=== PATIENT | female | born 1960 | race Caucasian/White ===

== ENCOUNTER 2023-02-09 17:22 | Observation (INO) | payer OTHER, SELFPAY ==
[2023-02-09] VITALS (16 sets, daily range): BP systolic 128–155; BP diastolic 63–94; PULSE 61–84; RESP 15–18; TEMP 36.6–36.7; O2SAT 90–100
--- NOTE | ~2023-02-09 | CT_ITS ---
EXAMINATION: CT abdomen pelvis w con INDICATION: Right lower quadrant pain TECHNIQUE: Computed tomographic images of the abdomen and pelvis were obtained after the administrati on of 100 cc of Omnipaque 350 intravenous contrast. The dose-length product (DLP) was 655.63 mGy-cm. Automated exposure control and iterative reconstruction technique were employed. COMPARISON: None available FINDINGS: Minimal dependent atelectasis is present in the lung bases. The heart size is normal. The l iver, spleen, pancreas, gallbladder, and adrenal glands are normal. The kidneys are unremarkable. The dilated appendix measures up to 9 mm. There is edematous stranding of the periappendiceal fat withou t evidence of perforation or abscess. No pathologically enlarged abdominal or pelvic lymph nodes are identified. No free intraperitoneal gas or evidence of bowel obstruction. There are umbilical and lef t inguinal hernias containing fat. There is a 3.5-1.4 cm enhancing area of the uterus. Moderate thora columbar spondylosis is noted. IMPRESSION: 1. Uncomplicated acute appendicitis. 2. Probable enhancing fibroid of the uterus. Follow-up with nonemergent pelvic ultrasound is recommen ded. Reviewed, dictated and finalized at location F. IMPRESSION: 1. Uncomplicated acute appendicitis. 2. Probable enhancing fibroid of the uterus. Follow-up with nonemergent pelvic ultrasound is recommended.
[2023-02-09 17:34] LABS: Basophils Percent Auto 0.5 % (0.2-1.2); Eosinophils Absolute Auto 0.1 K/mm3 (0-0.3); Eosinophils Percent Auto 1.4 % (0-4.4); Hematocrit 39.2 % (37.0-47.0); Immature Granulocyte Absolute 0.01 K/mm3 (0.00-0.031); Immature Granulocyte Percent A 0.2 % (0-0.5); Lymphocytes Absolute Auto 1.05 K/mm3 (0.9-3.2); Lymphocytes Percent Auto 24.7 % (18.3-44.2); Mean Corpuscular HGB Conc 33.2 g/dl (32-36); Mean Corpuscular Hemoglobin 34.6 pg (26-34); Mean Corpuscular Volume 104.3 fl (80-100); Monocytes Absolute Auto 0.3 K/mm3 (0.1-0.6); Monocytes Percent Auto 6.6 % (2.6-8.5); Neutrophils Absolute Auto 2.8 K/mm3 (1.3-6.7); Neutrophils Percent Auto 66.6 % (45.5-73.1); Platelet Count Result 194 k/mm3 (150-375); Red Blood Count 3.76 M/mm3 (4.2-5.4); White Blood Count 4.3 K/mm3 (4.5-10.0)
[2023-02-09 17:43] LABS: Alanine Aminotransferase 21 U/L (6-35); Albumin Level 4.7 g/dL (3.5-5.1); Alkaline Phosphatase 59 U/L (38-126); Anion Gap 6 mmol/L (8-16); Aspartate Amino Transferase 28 U/L (14-36); Bilirubin,Total 0.8 mg/dL (0.2-1.3); Blood Urea Nitrogen 12 mg/dL (7-17); Calcium 9.1 mg/dL (8.4-10.2); Carbon Dioxide 29 mmol/L (22-30); Chloride 99 mmol/L (98-107); Estimated CRCL calculation 78 ml/min; Estimated Glomerular Filt Rate > 60; Glucose 105 mg/dL (65-110); Lipase 77 U/L (23-300); Potassium 3.9 mmol/L (3.4-5.0); Sodium 134 mmol/L (137-145)
--- NOTE | 2023-02-09 19:39 | ED.ABDPAIN ---
HPI - Abdominal Pain General Chief Complaint: Abdominal Pain Stated Complaint: RLQ abdominal pain since yesterday Time Seen by Provider: 02/09/23 19:28 Source: patient Mode of arrival: ambulatory Limitations: no limitations History of Present Illness HPI narrative: This is a 62-year-old female who presents to the ED with chief complaint of abdominal pain x2 days. Patient states she states she had a generalized pain yesterday but it has since localized to the right lower quadrant and is more sharp and intense today. States the pain right now is a 5 out of 10. Endorses decreased appetite. She denies any fevers, chills, nausea, vomiting, diarrhea, chest pain, shortness of breath, cough, urinary symptoms. Denies flank pain. Related Data Home Medications Medication Instructions Recorded Confirmed aspirin 81 mg tablet,delayed 81 mg PO DAILY 02/10/23 02/10/23 release atorvastatin 40 mg tablet 40 mg PO DAILY 02/10/23 02/10/23 fluticasone propionate 50 1 spray intranasal DAILY 02/10/23 02/10/23 mcg/actuation nasal spray,suspension lisinopril 20 mg tablet 20 mg PO DAILY 02/10/23 02/10/23 Allergies Allergy/AdvReac Type Severity Reaction Status Date / Time No Known Allergies Allergy Unverified 02/09/23 17:22 [facility] Family History Family History (Updated 02/10/23 @ 01:23 by Kimberly Ugalde RN) Sibling Asthma Non-Hodgkin lymphoma Social History Social History Smoking status: Never smoker Alcohol intake: current Drinks per week: 7 Substance use: never Lack of Transportation: No Lack of Food: Never True Current Housing: I Have Housing Concerned About Future Housing: No Difficulty Paying Gas/Electric Bills: No Difficulty Paying for Meds: No Currently Unemployed: No Education: Associate Degree Difficulty w/ Childcare or Family Care: No Spiritual care concerns: No Exam Narrative: GENERAL: Well-appearing, well-nourished, and in no acute distress. HEAD: Normocephalic, atraumatic. EYES: PERRLA and EOMI. ENT: Nares clear, no rhinorrhea or epistaxis. Mucous membranes moist. Oropharynx without tonsillar hypertrophy exudate or other lesions. NECK: Supple. No adenopathy or masses. CHEST: No respiratory distress. Clear to auscultation. No wheezes rales or rhonchi HEART: Regular rate and rhythm. No murmur heard. Normal peripheral pulses. ABDOMEN: McBurney's point tenderness present. Negative Calix sign. Positive rebound tenderness with palpation of the RLQ. Negative guarding. Soft, otherwise nontender, nondistended, normal active bowel sounds. MSK: Normal range of motion. No edema. SKIN: Warm, dry, no rash. NEURO: Alert and oriented x3. No focal deficits. PSYCH: Normal mood and affect. Course Vital Signs Vital signs: Vital Signs Temperature 98.1 F 02/09/23 17:23 Pulse Rate 84 02/09/23 17:23 Respiratory Rate 18 02/09/23 17:23 Blood Pressure 148/94 H 02/09/23 17:23 Pulse Oximetry 99 02/09/23 17:23 Oxygen Delivery Room Air 02/09/23 17:23 Temperature 98.3 F 02/10/23 01:03 Pulse Rate 63 02/10/23 01:03 Respiratory Rate 17 02/10/23 01:03 Blood Pressure 154/88 H 02/10/23 01:03 Pulse Oximetry 100 02/10/23 01:03 Oxygen Delivery Room Air 02/10/23 01:24 MDM - Abdominal Pain MDM Narrative Medical decision making narrative: This is a 62-year-old female who presents the ED with chief complaint of right lower quadrant pain x1 day. Vital signs are stable. Afebrile. Exam does show point tenderness to the right lower quadrant with rebound tenderness present. Overall patient is well-appearing and is not requiring pain meds right now. Lab work is largely unremarkable. No white count. CT scan shows uncomplicated appendicitis. Discussed the case with Dr. Sneed (general surgery) who will admit the patient. She will be kept n.p.o. and given Zosyn. Discussed this plan with the patient and she is agreeable with the plan for admission.
[2023-02-09 19:46] LABS: Appearance Urine Clear (Clear); Bacteria Urine None Seen /hpf; Bilirubin Urine Negative (Negative); Blood Urine Trace (Negative); Color Urine Yellow (Yellow); Glucose Urine UA Negative (Negative); Ketones Urine Trace mg/dL (Negative); Leukocyte Esterase Ur Trace LEU/UL (Negative); Nitrate Urine Negative (Negative); Non Pathogenic Casts 0-2; Protein Urine Negative (Negative); RBC Urine 0-2 /hpf (0-2); Squamous Epithelial Cell Urine None seen /hpf (Few); Urobilinogen Urine 0.2 mg/dL (<2.0); WBC Urine 0-5 /hpf; pH Urine 5.5 (5.0-9.0)
[2023-02-09 20:18] LABS: Add Urine Microscopic? YES
[2023-02-09] MEDS: PIPERACILLN/TAZ 3.375GM/NS50ML 3.375 GM/50 ML BAG IVPB (21:17)
[2023-02-09] MEDS: SODIUM CHLORIDE 0.9% IV 1,000 ML 75 ML IV CONT (23:54)
[2023-02-10] VITALS (11 sets, daily range): BP systolic 91–157; BP diastolic 46–88; PULSE 52–72; RESP 13–18; TEMP 36.3–37; O2SAT 95–100; BMI 31.8
--- NOTE | 2023-02-10 01:16 | ADMGEN ---
This patient, Josselyn Calix, was admitted to 2 Medical Room 259-01. Patient/family oriented to hospital policies and general routines including ID bracelet, bed and alarms, visiting hours, pain management, procedures, bathroom and other care routines, personal items, smoking policy, room service/diet, and visiting hours. Information on how to activate the Rapid Response Team has been discussed. Patient/Family are encouraged to report perceived risks to care and to ask questions if they do not understand what they are told or what they should do.
[2023-02-10] MEDS: HYDROcodone/acetaminophen (*CRX) 5-325 MG TABLET 1 TAB PO (08:32)
--- NOTE | 2023-02-10 10:10 | WPDANESEPPF ---
Anes - Initial Pre Proc Eval Procedure: Operation Date: 02/10/23 13:30 Proposed Procedures p Laparoscopic Appendectomy - Verónica Sneed MD Date/Time: 02/10/23 10:10 Surgeon: Verónica Sneed MD Pre Op Diagnosis: Acute Appendicitis Patient Data Age: 62 Gender: F Height: 1.63 m Weight: 84.1 kg Last Vital Signs Temp 36.9 C 02/10/23 05:03 Pulse 64 02/10/23 05:03 Resp 17 02/10/23 05:03 BP 136/70 02/10/23 05:03 Pulse Ox 100 02/10/23 05:03 O2 Del Method Room Air 02/10/23 08:02 Allergies Allergy/AdvReac Type Severity Reaction Status Date / Time No Known Allergies Allergy Unverified 02/09/23 17:22 Home Medications Medication Instructions Recorded Confirmed Type aspirin 81 mg tablet,delayed 81 mg PO DAILY 02/10/23 02/10/23 History release atorvastatin 40 mg tablet 40 mg PO DAILY 02/10/23 02/10/23 History fluticasone propionate 50 1 spray intranasal DAILY 02/10/23 02/10/23 History mcg/actuation nasal spray,suspension lisinopril 20 mg tablet 20 mg PO DAILY 02/10/23 02/10/23 History Laboratory Tests 02/09/23 02/09/23 17:29 19:32 WBC 4.3 L K/mm3 (4.5-10.0) RBC 3.76 L M/mm3 (4.2-5.4) Hgb 13.0 g/dL (12.0-15.0) Hct 39.2 % (37.0-47.0) MCV 104.3 H fl (80-100) MCH 34.6 H pg (26-34) MCHC 33.2 g/dl (32-36) RDW 12.0 % (11.5-14.5) Plt Count 194 k/mm3 (150-375) MPV 10.0 fl (7.4-10.4) Immature Gran % (Auto) 0.2 % (0-0.5) Neut % (Auto) 66.6 % (45.5-73.1) Lymph % (Auto) 24.7 % (18.3-44.2) [place] % (Auto) 6.6 % (2.6-8.5) Eos % (Auto) 1.4 % (0-4.4) Baso % (Auto) 0.5 % (0.2-1.2) Lymph # (Auto) 1.05 K/mm3 (0.9-3.2) [place] # (Auto) 0.3 K/mm3 (0.1-0.6) Eos # (Auto) 0.1 K/mm3 (0-0.3) Baso # (Auto) 0.0 K/mm3 (0.0-0.1) Abs Immat Gran (auto) 0.01 K/mm3 (0.00-0.031) Absolute Neuts (auto) 2.8 K/mm3 (1.3-6.7) Absolute Nucleated RBC 0.0 K/mm3 (0.0-0.012) Nucleated RBC % 0.0 % (0.0-0.2) Sodium 134 L mmol/L (137-145) Potassium 3.9 mmol/L (3.4-5.0) Chloride 99 mmol/L (98-107) Carbon Dioxide 29 mmol/L (22-30) Anion Gap 6 L mmol/L (8-16) BUN 12 mg/dL (7-17) Creatinine 0.70 mg/dL (0.7-1.0) Estim Creat Clear Calc 78 ml/min Estimated GFR > 60 (59 - ) Glucose 105 mg/dL (65-110) Calcium 9.1 mg/dL (8.4-10.2) Total Bilirubin 0.8 mg/dL (0.2-1.3) AST 28 U/L (14-36) ALT 21 U/L (6-35) Alkaline Phosphatase 59 U/L (38-126) Total Protein 8.0 g/dL (6.3-8.2) Albumin 4.7 g/dL (3.5-5.1) Lipase 77 U/L (23-300) Urine Color Yellow (Yellow) Urine Appearance Clear (Clear) Urine pH 5.5 (5.0-9.0) Ur Specific [place] 1.010 (1.001-1.035) Urine Protein Negative mg/dL (Negative) Urine Glucose (UA) Negative mg/dL (Negative) Urine Ketones Trace H mg/dL (Negative) Ur Blood (Man) Trace (Negative) Urine Nitrate Negative (Negative) Urine Bilirubin Negative (Negative) Urine Urobilinogen 0.2 mg/dL (<2.0) Leukocyte Esterase Rfl Trace H INDRA/UL (Negative) Urine RBC 0-2 /hpf (0-2) Urine WBC 0-5 /hpf Ur Squamous Epith Cells None seen /hpf (Few) Urine Bacteria None seen /hpf Urine Casts 0-2 Patient hx anesthesia problems: none Family hx anesthesia problems: none Results Review: All pre-operative results and documents have been reviewed as part of the pre-operative evaluation. [facility] Past Medical History Medical History Acute appendicitis Chronic GERD CVA (cerebral vascular accident) HTN (hypertension) Hyperlipidemia Obesity Family History Fami
--- NOTE | 2023-02-10 10:40 | PM.IMHP ---
H&P: HPI History of Present Illness Date/Time: 02/10/23 10:40 Chief Complaint: Acute appendicitis Narrative: The patient is a 62-year-old female presenting to the emergency department complain right lower quadrant abdominal pain over the last 3-4 days. The patient reports the pain started more diffusely and intermittent in nature, however has progressed to more constant and localized in the right lower quadrant. The patient reports associated decreased appetite and general malaise, but no fevers, chills, nausea, or vomiting. The patient reports that she is having normal bowel function. The patient reports a similar episode a few years ago that was not this severe. Review of Systems Constitutional: Constitutional: Reports as per HPI, Denies anorexia, Denies chills, Reports fatigue, Reports lethargy, Reports malaise, Reports poor appetite, Denies weakness, Denies weight gain and Denies weight loss Eyes: Eyes: Reports no additional eye complaints ENT: Reports system reviewed and no additional complaints, except as documented Cardiovascular: Cardiovascular: Reports no additional cardiovascular complaints Respiratory: Respiratory: Reports no additional respiratory complaints Gastrointestinal: Gastrointestinal: Reports as per HPI, Reports abdominal pain, Denies bloating, Denies change in bowel habits, Denies GI cramping, Denies early satiety, Denies nausea and Denies vomiting Genitourinary: Genitourinary: Reports no additional female genitourinary complaints Musculoskeletal: Musculoskeletal: Reports no additional musculoskeletal complaints Integumentary/Breasts: Skin/Breast: Reports system reviewed and no additional complaints, except as docu Neurologic: Reports system reviewed and no additional complaints, except as documented Psychiatric: Psychiatric: Reports no additional psychiatric complaints Endocrine: Endocrine: Reports no additional endocrine complaints Hematologic/Lymphatic: Hematologic/Lymphatic: Reports no additional hematologic/lymphatic complaints Allergic/Immunologic: Allergic/Immunologic: Reports no additional allergic/immunologic complaints PMF Past Medical History Medical History Acute appendicitis Chronic GERD CVA (cerebral vascular accident) HTN (hypertension) Hyperlipidemia Obesity Family History Family History Sibling Asthma Non-Hodgkin lymphoma Social History Social History Smoking status: Never smoker Alcohol intake: current Drinks per week: 7 Substance use: never Lack of Transportation: No Lack of Food: Never True Current Housing: I Have Housing Concerned About Future Housing: No Difficulty Paying Gas/Electric Bills: No Difficulty Paying for Meds: No Currently Unemployed: No Education: Associate Degree Difficulty w/ Childcare or Family Care: No Spiritual care concerns: No Meds Home Medications and Allergies Home Medications Medication Instructions Recorded Confirmed Type aspirin 81 mg tablet,delayed 81 mg PO DAILY 02/10/23 02/10/23 History release atorvastatin 40 mg tablet 40 mg PO DAILY 02/10/23 02/10/23 History fluticasone propionate 50 1 spray intranasal DAILY 02/10/23 02/10/23 History mcg/actuation nasal spray,suspension lisinopril 20 mg tablet 20 mg PO DAILY 02/10/23 02/10/23 History Allergies Allergy/AdvReac Type Severity Reaction Status Date / Time No Known Allergies Allergy Unverified 02/09/23 17:22 Vital Signs Vital Signs - 24 hr 02/09/23 17:23 02/09/23 19:30 02/09/23 19:42 Temperature 36.7 C 36.6 C Pulse Rate 84 73 Respiratory Rate 18 15 Blood Pressure 148/94 H 155/76 H Pulse Oximetry 99 97 97 Oxygen Delivery Room Air 02/09/23 19:45 02/09/23 20:00 02/09/23 20:16 Temperature Pulse Rate Respiratory Rate Blood Pressure 13
--- NOTE | 2023-02-10 10:46 | WPDHPUPDATE1 ---
History and Physical Update Update Date/Time: 02/10/23 10:46 History and Physical has been reviewed, including an updated exam of the patient. There are NO changes in the patient's condition. Risks, benefits, and alternatives have been discussed and questions answered. Patient agrees to proceed with procedure.
--- NOTE | 2023-02-10 12:34 | PC.NURSE ---
To OR per bed, IV saline locked. Report given to JING Cano.
[2023-02-10] MEDS: LACTATED RINGERS 1,000 ML 30 ML IV CONT (12:47)
[2023-02-10] MEDS: BUPIVACAINE/EPINEPHRINE 0.5% 50 ML VIAL INFILTRATE (13:56)
[2023-02-10] MEDS: ceFAZolin 2 GM/D5W 50 ML 2 GM/50 ML BAG IVPB (13:58)
--- NOTE | 2023-02-10 14:15 | P.OP_ITS ---
Procedure Note - Detailed Date of Procedure 02/10/23 Pre-op Diagnosis Acute Appendicitis Post-op Diagnosis Same Procedure Performed laparoscopic appendectomy Surgeon Verónica Sneed MD Anesthesia General Indications 62 y/o F presenting to ED c/o RLQ abd pain. Workup, including CT, significant for acute appendicitis Findings acute appendicitis no evidence of perforation Description of Procedure The patient was taken to the operating room and placed in the supine position. After adequate induction of general anesthesia, the patient was prepped and draped in the normal sterile fashion. A time-out was then done to verify the patient's identity, as well as the procedure being performed. I began by making a 5 mm incision in the infraumbilical region, through this a Veress needle was placed in the peritoneal cavity. CO2 gas was then insufflated and after adequate pneumoperitoneum was achieved the Veress needle was removed. Then placed a 5 mm Optiview trocar under direct visualization into the peritoneal cavity. I then insufflated through this trocar site and the endoscope was placed into the trocar. Under direct visualization, placed 2 further 5 mm suprapubic port as well as an additional 12 mm port in the left lower abdomen. At this point identified the cecum, I retracted the cecum both medially and superiorly allowing me to expose the appendix. The appendix was noted to be very dilated and inflamed. The appendix was noted to be very adherent to the right lateral sidewall as well as the ileum. I was able to bluntly dissect the appendix from these adhesions. I then was able to locate the base of the appendix with the cecum. I created a window with the [place] dissector between the appendix itself and the mesoappendix. I then transected the mesoappendix with a white vascular staple load. The Endo-PAUL was then reloaded with a blue staple load and I transected the base of the appendix. Once the specimen was completely detached, an endo-pouch was placed into the 12 mm port site and the specimen was removed through the endo-pouch. The appendiceal specimen will be sent to pathology for further review. I then copiously irrigated the right lower quadrant. Some mild oozing was noted at the mesoappendix staple line and controlled with the bovie cautery as well as some 5 mm clips. Hemostasis was then noted at both staple lines no other pathology was seen in this area. I then moved the camera to the suprapubic port to check our its port of entry. No iatrogenic injury or other pathology was noted in the upper abdomen. I then closed the 12 mm port site with a Larry code and 0 Vicryl suture under direct visualization. At this point, the abdomen was desufflated and all ports were removed. All port sites were closed with 4 Monocryl subcuticular suture. Mayco mabond was placed on all wounds. The patient tolerated the procedure well and was extubated in the operating room postop. He will be sent to the recovery room in stable condition. Estimated Blood Loss 20 Urine Output 200 Drains No Packing No Pathology Yes Complications No immediate complications Condition Stable Disposition PACU [facility] Billing Surgery - Charge Forward: Surgery Billing
[2023-02-10] MEDS: fentaNYL CITRATE INJ (*CRX) 100 MCG/2 ML VIAL 25 MCG IV PUSH ×3 (14:52→14:59)
--- NOTE | 2023-02-10 15:30 | PC.NURSE ---
Returned from OR per bed. Report received from JING David.
--- NOTE | 2023-02-12 11:06 | PM.DS ---
DS: Admitting Diagnosis Discharge Date 02/10/23 Admitting Diagnosis acute appendicitis DS: Discharge Diagnosis Discharge Diagnosis (1) Acute appendicitis: Code(s): K35.80 - Unspecified acute appendicitis Status: Acute Assessment and Plan: status post appendectomy, continue routine postoperative care, home with p.o. analgesia and Colace, follow-up 2 weeks (2) HTN (hypertension): Code(s): I10 - Essential (primary) hypertension Status: Acute Assessment and Plan: stable, continue home medications DS: Summary Hospital Course Reason for hospitalization: acute appendicitis Hospital Course: The patient is a 62-year-old female presenting to the emergency department complaining right lower quadrant abdominal pain. Workup including imaging was significant for acute appendicitis. The patient was admitted to the Surgical Service, made NPO, and started on IV antibiotics. Upon evaluation the decision was made to proceed emergent appendectomy. Patient was taken to the operating room and laparoscopic appendectomy was performed, please see full operative report for details of that procedure. Postoperatively, the patient did well was transferred back to the surgical floor. The patient was able to tolerate a bland diet and was able to ambulate without difficulty. Her pain was well controlled with p.o. analgesia. The patient will be discharged home with instructions for local wound care, as well as prescriptions for p.o. analgesia Colace. She will follow-up with me in 2 weeks. Status at Discharge Functional status at discharge: independent ambulation Overall status at discharge: patient is progressing back to baseline Time Spent with Patient Time attestation: Total time spent providing and/or coordinating discharge services: Time spent: Less than 30 minutes Exam Const: General: cooperative, comfortable and no acute distress Resp: Auscultation: clear to auscultation bilaterally Cardio: Rate: regular rate Rhythm: regular rhythm GI: Inspection: normal to inspection, distended and incision GI Palp: Yes abdominal tenderness, Yes Soft to palpation and Yes Tenderness to palpation present (GI) DS: Data Data Completed and Pending Pending studies at discharge: Pending at discharge 02/10/23 13:58 Surgical [PTH] Routine Discharge Plan Discharge Attending physician on discharge: Verónica Sneed Consulting providers: Alexander Lynn; Tani Anaya Discharging Clinician: Verónica Sneed Anticipated Discharge Date/Time: 02/10/23 18:00 Patient Disposition: Home, Self-Care Activity: may shower and other - see discharge instructions Diet: as tolerated Wound Care Instructions: follow printed instructions Discharge Instructions: DISCHARGE INSTRUCTION SHEET FOR HERNIA, GALLBLADDER AND APPENDIX SURGERIES DR. SNEED PATIENT TO TAKE HOME 1. May shower in 24 hours, no soaking in bath x 2weeks. 2. Call office for: Wound increasingly painful or bleeding Vomiting Fever of greater than 101 degrees 3. If no bowel movement for three days, take 1 oz. (30 ml) Milk of Magnesia or MiraLax 17g 1 to 2 times daily. 4. No heavy lifting > 10-15 pounds x 6 weeks for hernia repairs and 2 weeks for laparoscopic cholecystectomy or appendectomy. 5. No driving for 3 days or while taking narcotic pain medications. 6. Ice to surgical site for 48 hours (30 min on, then 30 min off). 7. Up walking 10-30 minutes three times per day. 8. Resume previous home medications. 9. Follow-up 10-14 days in office for wound check or as previously scheduled. ([phone]) 10. Oral pain medications prescription to be sent to pharmacy. Take Tylenol 500mg every 6 hours and Ibuprofen 600mg every 6 hours for the first 2 days, then as needed. 11. NUTRITION: Start out by drinking fluids and increase your diet as tolerated. If you experienc
== END 2023-02-10 19:03 | disposition home or self-care (01) ==
LOC: ANHED 23:38 → ANH2MED 02-10 06:50
PROVIDERS: Emergency Medicine; Admitting Provider Surgery; Emergency Provider Physician Assistant; Visit Provider Surgery
PROC: 0DTJ4ZZ Resection of Appendix, Percutaneous Endoscopic Approach (ICD-10-PCS; CPT 44970; principal; 2023-02-10 13:30)
DX: K35.80 Unspecified acute appendicitis (principal); K21.9 Gastro-esophageal reflux disease without esophagitis; I10 Essential (primary) hypertension; E78.5 Hyperlipidemia, unspecified; E66.9 Obesity, unspecified; Z68.31 Body mass index [BMI] 31.0-31.9, adult; F10.90 Alcohol use, unspecified, uncomplicated; Z86.73 Personal history of transient ischemic attack (TIA), and cerebral infarction without residual deficits; Z79.82 Long term (current) use of aspirin; Z79.899 Other long term (current) drug therapy
CPT/HCPCS: 44970; 36415; 74177; 80053; 81001; 83690; 85025; 88304; 96365; 96375; 99285; A9270; G0378; J0330; J0690; J1100; J2405; J2543; J2704; J3010; J7030; J7120; Q9967

== ENCOUNTER 2023-10-28 13:12 | Outpatient (CLI) | payer OTHER, SELFPAY ==
--- NOTE | 2023-10-28 | ECG_ITS ---
Measurements Intervals [place] Rate: 72 P: 46 RI: 184 QRS: -37 QRSD: 145 T: 26 QT: 400 QTc: 438 Interpretive Statements SINUS RHYTHM LEFT AXIS DEVIATION [QRS AXIS < -30] RIGHT BUNDLE-BRANCH BLOCK ABNORMAL ECG NO PREVIOUS ECG AVAILABLE FOR COMPARISON Electronically Signed On 10-29-2023 12:17:31 CHEMICAL TREATMENT OPERATOR by Abilio Castorena M.D.
[2023-10-28 14:38] LABS: Anion Gap 8 mmol/L (8-16); Blood Urea Nitrogen 29 mg/dL (7-17); Carbon Dioxide 28 mmol/L (22-30); Chloride 99 mmol/L (98-107); Estimated Glomerular Filt Rate > 60; Glucose 186 mg/dL (65-110); Potassium 3.9 mmol/L (3.4-5.0); Sodium 135 mmol/L (137-145)
== END 2023-10-28 13:13 | disposition home or self-care (01) ==
PROVIDERS: Visit Provider Otolaryngology
DX: I10 Essential (primary) hypertension (principal); Z01.818 Encounter for other preprocedural examination; I45.10 Unspecified right bundle-branch block
CPT/HCPCS: 36415; 80048; 93005